=== PATIENT | female | born 1960 | race Caucasian/White ===

== ENCOUNTER 2024-05-04 08:56 | Outpatient (AMB) | payer OTHER, SELFPAY ==
[2024-05-04 09:38] VITALS: BP 106/73; PULSE 73; RESP 19; TEMP 36.1; O2SAT 95; BMI 29.4
--- NOTE | 2024-05-04 09:38 | ORTHONT_ITS ---
Vital signs 05/04/24 09:38 Height 1.73 m Height Method Stated Weight 87.997 kg Weight Measurement Method Standing Scale BMI 29.4 BP 106/73 Blood Pressure Source Automatic Cuff Blood Pressure Location Left Upper Arm Position Sitting Respiration 19 Pulse 73 Pulse Source Monitor Temp 96.9 F Temp Source Temporal Artery Scan Pulse Oximetry (%) 95 Oxygen Delivery Method Room Air Med/Allergies Allergies & Medications Allergies Penicillins Allergy (Severe, Verified 05/04/24 09:39) SWELLING IN THROAT, RASH Medication Reconciliation lorazepam 1 mg tablet 1 mg PO BID PRN Anxiety 09/30/17 [History Confirmed 05/04/24] docusate sodium 250 mg capsule 250 mg PO BID 09/26/23 [History Confirmed 05/04/24] estradiol 1 mg tablet 1 mg PO QDAY 09/26/23 [History Confirmed 05/04/24] gabapentin 600 mg tablet 600 mg PO TID 09/26/23 [History Confirmed 05/04/24] loratadine 10 mg tablet (Allergy Relief (loratadine)) 10 mg PO QDAY 09/26/23 [History Confirmed 05/04/24] meloxicam 15 mg tablet 15 mg PO QDAY 09/26/23 [History Confirmed 05/04/24] methocarbamol 750 mg tablet 750 mg PO BID PRN Pain 09/26/23 [History Confirmed 05/04/24] mirabegron 25 mg tablet,extended release 24 hr (Myrbetriq) 25 mg PO QDAY 09/26/23 [History Confirmed 05/04/24] ondansetron HCl 4 mg tablet 4 mg PO Q8H PRN Nausea 09/26/23 [History Confirmed 05/04/24] oxycodone 5 mg capsule 5 mg PO DAILY PRN Pain 09/26/23 [History Confirmed 05/04/24] levothyroxine 150 mcg tablet 150 mcg PO DAILY 11/24/23 [History Confirmed 05/04/24] omeprazole 40 mg capsule,delayed release 40 mg PO DAILY 11/24/23 [History Confirmed 05/04/24] tirzepatide (weight loss) 2.5 mg/0.5 mL subcutaneous pen injector (Zepbound) 2.5 mg subcut QWEEK 11/24/23 [History Confirmed 05/04/24] tirzepatide (weight loss) 2.5 mg/0.5 mL subcutaneous pen injector (Zepbound) 2.5 mg subcut QWEEK 01/09/24 [History Confirmed 05/04/24] Exam Exam Patient is in no acute distress and is cooperative with the examination today. Breathing is nonlabored. In no respiratory distress. Patient has no paraspinal tenderness. Spinal deformity [cannot] be appreciated. The gait of the patient is [nonantalgic] Bilateral extremities were evaluated and demonstrates sensation intact to light touch. Palpable pedal pulses are present. No significant edema is present. Bilateral knees were examined and the patient has full strength and range of motion.. The left hip was examined. Patient was able to flex to 90 degrees, adduct to 30 degrees, abduct to 40 degrees, internally rotate to 20 degrees, and externally rotate to 20 degrees. Patient has a negative logroll. Stinchfield is negative. The patient is Tender to touch over the greater trochanter The right hip was examined. Patient was able to flex to [90] degrees, adduct to [30] degrees, abduct to [40] degrees, internally rotate to [20] degrees, and externally rotate to [20] degrees. Patient has a [negative] logroll. The stinchfield is [negative]. Tender to touch over the treated trochanteric Bilateral knees demonstrate tenderness to palpation medially. Range of motion 0 to 110 degrees. Knee feels stable to varus stress as well as AP translation X-rays demonstrate minimal joint space narrowing of both hips. Bilateral knee films Demonstrate medial joint space narrowing. Assessment and Plan Problem List (1) Bilateral primary osteoarthritis of knee: Status: Acute Plan: Patient is a 63-year-old female with bilateral knee pain and bilateral knee osteoarthritis. We did Bilateral knee injections previously and the pain relief lasted over 3 months. She would like repeat knee injections today. She would also like a trochanteric bursitis injection on the right side of the next visit Recommend knee cortisone injections as patient would like to proceed with conservative treatment at this time. The risks and benefits of the procedure were reviewed with the patient and patient gave verbal consent to continue with the procedure. Procedure: performed by Dr. Rivero Using sterile technique the Bilateral knees were thoroughly prepped with alcohol, and approximately 1 cc of Kenalog 40 mg/mL and 4 cc of 1% lidocaine was injected into each knee without resistance into the medial tibial femoral joint space. The patient tolerated the procedure. Office Procedures GNS Level of Care Nursing/Assessment Patient Status: Established Patient Nursing Assessment/Reassesment: Medication Reconciliation, Update PMH in EMR and Vital Signs Coordination of Care: Complex Care and Chronic Disease 1-5, Education Complex Pt/Fam, Consent,records obtained, informed consent, 1 Ins Authorization, Results/Orders obtained and Staff clarify orders Established Patient Charge Established Patient Point Assignment: 110 Established Patient Point Charge: EP Level 3 (80-115) Surgical Proc/IM SQ injection Major Surgical Procedure: Yes (BILATERAL KNEE INJECTION) Medication Given Medication Given Medication Given: Yes Documented Dose Given: 8 Route: Infiitration Medication Given Medication Given Medication Given: Yes Documented Dose Given: 2 Route: Infiitration Office Meds Xylocaine 10 mg/mL (1 %) injection solution Performing Provider: Rafat Rivero MD Performing Location: [facility] Administered by: Rafat Rivero MD on 05/04/24 10:06 Dose Route Admin Location Dispensed Lot Number Expiration Date [facility] Trolley Car Operator 40 mL Infiltration 40 mL [id number] 01/01/27 80703-435-78 [facility] triamcinolone acetonide 40 mg/mL suspension for injection Performing Provider: Rafat Rivero MD Performing Location: [facility] Administered by: Rafat Rivero MD on 05/04/24 10:06 Dose Route Admin Location Dispensed Lot Number Expiration Date [facility] Trolley Car Operator 80 mg Infiltration 2 mL [id number] 10/01/25 2885-1047-12 TEVA PARENTERAL [place] Intake Visit Data Collection New Patient or Established: Established Patient (seen at [facility] within 3 years) Reason for Visit:: F/U BL KNEE/RIGHT HIP PAIN Seen by Clinical Staff ONLY (RN/MA): No Supervisor Air Conditioning Installer Required: No PCP or OBGYN visit in last 3 months: Yes Hx Now: No Do You Feel Safe at Home: Yes Authorities Contacted: N/A Questionairres Past Medical History Past Medical History Have you ever been diagnosed with any of the following: Neurological Problems Seizures: No Cardiology Problems Heart Murmur: Yes Congestive Heart Failure: No Hypertension: Yes Respiratory Problems Chronic Obstructive Pulmonary Disease (COPD): No Pneumonia: Yes Sleep Apnea: Yes (WAITING FOR CPAP DELIVERY) Stomache/Intestinal Problems Gall Bladder Disease: Yes Gastroesophageal Reflux Disease: Yes Genital/Urinary Problems Renal Disease: No Musculoskeletal Problems Arthritis: Yes Osteoporosis: Yes Degenerative Disk Disease: Yes Fibromyalgia: Yes Endocrine Problems Diabetes Mellitus Type 1: No Diabetes Mellitus Type 2: No Hypothyroidism: Yes Psychologic Problems Depression: Yes Anxiety: Yes Other Problems Hospitalization: Yes Falls: Yes Blood Transfusions: Yes Blood Transfusion Reaction: No Anesthesia Reactions: No Chicken Pox: Yes Measles: Yes Mumps: Yes Cancer: No Surgical History Hysterectomy: Yes Subjective Visit Visit for: follow up visit, hip (RIGHT) and knee (BILATERAL) Immunization / Flu Flu Vaccine in the Last 12 Months: No Flu Vaccine Exclusion Criteria: No Exclusion Criteria History of Present Illness Chief complaint: Bilateral knee pain Patient is a 63-year-old female with bilateral knee pain and bilateral knee arthritis. She has 3 months of relief with the last injections only given today. She also reports right trochanteric bursitis. We injected her left hip last time with bursitis is wondering completely. She reports the right side is bothering her somewhat. She would like to get this injected at some point Pain Pain level (0-10): 7 Pain duration: CONSTANT Pain location: inside (medial) and other (specify) (HIP) Pain quality: sharp, burning and tingling Pain timing: night, increases with activity and stairs Associated signs & symptoms: weakness and stiffness Ambulatory data Ambulatory device: none Treatments Improvement with previous injections: Yes Improvement with PT: No Improvement with NSAIDS: no Review of Systems Review of Systems: All systems negative unless otherwise noted in HPI.
== END 2024-05-04 10:23 | disposition home or self-care (01) ==
LOC: HODSRG 08:56
PROVIDERS: Supervising Provider Orthopaedic Surgery Adult Reconstructive Orthopaedic Surgery; Visit Provider Orthopaedic Surgery Adult Reconstructive Orthopaedic Surgery
DX: M17.0 Bilateral primary osteoarthritis of knee (principal); M25.562 Pain in left knee; M25.561 Pain in right knee; M70.61 Trochanteric bursitis, right hip; I10 Essential (primary) hypertension; K21.9 Gastro-esophageal reflux disease without esophagitis; E03.9 Hypothyroidism, unspecified
CPT/HCPCS: 20610; 99213; J3301; J3490; G0463

== ENCOUNTER 2024-05-14 09:00 | Outpatient (AMB) | payer OTHER, SELFPAY ==
[2024-05-14 09:04] VITALS: BP 124/62; PULSE 69; RESP 18; TEMP 35.6; O2SAT 94; BMI 29.8
--- NOTE | 2024-05-14 09:04 | PD.ORTHCLVIS ---
Vital signs 05/14/24 09:04 Height 1.73 m Height Method Stated Weight 89.386 kg Weight Measurement Method Standing Scale BMI 29.8 BP 124/62 Blood Pressure Source Automatic Cuff Blood Pressure Location Right Upper Arm Position Sitting Respiration 18 Pulse 69 Pulse Source Monitor Temp 96.1 F L Temp Source Temporal Artery Scan Pulse Oximetry (%) 94 L Oxygen Delivery Method Room Air Med/Allergies Allergies & Medications Allergies Penicillins Allergy (Severe, Verified 05/14/24 09:05) SWELLING IN THROAT, RASH Medication Reconciliation lorazepam 1 mg tablet 1 mg PO BID PRN Anxiety 09/30/17 [History Confirmed 05/14/24] docusate sodium 250 mg capsule 250 mg PO BID 09/26/23 [History Confirmed 05/14/24] estradiol 1 mg tablet 1 mg PO QDAY 09/26/23 [History Confirmed 05/14/24] gabapentin 600 mg tablet 600 mg PO TID 09/26/23 [History Confirmed 05/14/24] loratadine 10 mg tablet (Allergy Relief (loratadine)) 10 mg PO QDAY 09/26/23 [History Confirmed 05/14/24] meloxicam 15 mg tablet 15 mg PO QDAY 09/26/23 [History Confirmed 05/14/24] methocarbamol 750 mg tablet 750 mg PO BID PRN Pain 09/26/23 [History Confirmed 05/14/24] mirabegron 25 mg tablet,extended release 24 hr (Myrbetriq) 25 mg PO QDAY 09/26/23 [History Confirmed 05/14/24] ondansetron HCl 4 mg tablet 4 mg PO Q8H PRN Nausea 09/26/23 [History Confirmed 05/14/24] oxycodone 5 mg capsule 5 mg PO DAILY PRN Pain 09/26/23 [History Confirmed 05/14/24] levothyroxine 150 mcg tablet 150 mcg PO DAILY 11/24/23 [History Confirmed 05/14/24] omeprazole 40 mg capsule,delayed release 40 mg PO DAILY 11/24/23 [History Confirmed 05/14/24] tirzepatide (weight loss) 2.5 mg/0.5 mL subcutaneous pen injector (Zepbound) 2.5 mg subcut QWEEK 11/24/23 [History Confirmed 05/14/24] tirzepatide (weight loss) 2.5 mg/0.5 mL subcutaneous pen injector (Zepbound) 2.5 mg subcut QWEEK 01/09/24 [History Confirmed 05/14/24] Exam Exam Patient is in no acute distress and is cooperative with the examination today. Breathing is nonlabored. In no respiratory distress. Patient has no paraspinal tenderness. Spinal deformity [cannot] be appreciated. The gait of the patient is [nonantalgic] Bilateral extremities were evaluated and demonstrates sensation intact to light touch. Palpable pedal pulses are present. No significant edema is present. Bilateral knees were examined and the patient has full strength and range of motion.. The left hip was examined. Patient was able to flex to 90 degrees, adduct to 30 degrees, abduct to 40 degrees, internally rotate to 20 degrees, and externally rotate to 20 degrees. Patient has a negative logroll. Stinchfield is negative. The patient is Tender to touch over the greater trochanter The right hip was examined. Patient was able to flex to [90] degrees, adduct to [30] degrees, abduct to [40] degrees, internally rotate to [20] degrees, and externally rotate to [20] degrees. Patient has a [negative] logroll. The stinchfield is [negative]. Tender to touch over the treated trochanteric Bilateral knees demonstrate tenderness to palpation medially. Range of motion 0 to 110 degrees. Knee feels stable to varus stress as well as AP translation X-rays demonstrate minimal joint space narrowing of both hips. Bilateral knee films Demonstrate medial joint space narrowing.Right hip demonstrates minimal arthritis Assessment and Plan Problem List (1) Trochanteric bursitis of both hips: Status: Acute Plan: Patient is a pleasant 63-year-old female with trochanteric bursitis of the right hip. She would like an injection today. We also recommend continued anti-inflammatories and weight loss Recommend hip bursa cortisone injection as patient would like to proceed with conservative treatment at this time. The risks and benefits of the procedure were reviewed with the patient and patient gave verbal consent to continue with the procedure. Procedure: performed by Dr. Rivero Using sterile technique the right hip bursa was thoroughly prepped with alcohol prep, and approximately 1 cc of Kenalog 40 mg/mL and 4 cc of 1% Lidocaine was injected without resistance. The patient tolerated the procedure well. Office Procedures GNS Level of Care Nursing/Assessment Patient Status: Established Patient Nursing Assessment/Reassesment: Medication Reconciliation, Update PMH in EMR and Vital Signs Coordination of Care: Complex Care and Chronic Disease 1-5, Education Complex Pt/Fam, Consent,records obtained, informed consent, Results/Orders obtained and Staff clarify orders Established Patient Charge Established Patient Point Assignment: 95 Established Patient Point Charge: EP Level 3 (80-115) Surgical Proc/IM SQ injection Major Surgical Procedure: Yes (HIP INJECTION ) Medication Given Medication Given Medication Given: Yes Documented Dose Given: 4 Route: Infiitration Medication Given Medication Given Medication Given: Yes Documented Dose Given: 1 Route: Infiitration Office Meds Xylocaine 10 mg/mL (1 %) injection solution Performing Provider: Rafat Rivero MD Performing Location: [facility] Administered by: Rafat Rivero MD on 05/14/24 11:49 Dose Route Admin Location Dispensed Lot Number Expiration Date [facility] Food Safety Field Specialist 20 mL Infiltration 20 mL [id number] 12/09/26 65265-699-46 [facility] triamcinolone acetonide 40 mg/mL suspension for injection Performing Provider: Rafat Rivero MD Performing Location: [facility] Administered by: Rafat Rivero MD on 05/14/24 11:49 Dose Route Admin Location Dispensed Lot Number Expiration Date [facility] Food Safety Field Specialist 40 mg intra-articular KNEE 1 mL [id number] 09/02/25 8717-2134-55 TEVA PARENTERAL [place] Intake Visit Data Collection New Patient or Established: Established Patient ([place] [facility] [place] Reason for Visit:: REQ HIP INJECTION Seen by Clinical Staff ONLY (RN/MA): No Verbal consent obtained for Telemed visit?: No Co Chairman Required: No PCP or OBGYN visit in last 3 months: Yes Hx Now: No Do You Feel Safe at Home: Yes Authorities Contacted: N/A Questionairres Past Medical History Past Medical History Have you ever been diagnosed with any of the following: Neurological Problems Seizures: No Cardiology Problems Heart Murmur: Yes Congestive Heart Failure: No Hypertension: Yes Respiratory Problems Chronic Obstructive Pulmonary Disease (COPD): No Pneumonia: Yes Sleep Apnea: Yes (WAITING FOR CPAP DELIVERY) Stomache/Intestinal Problems Gall Bladder Disease: Yes Gastroesophageal Reflux Disease: Yes Genital/Urinary Problems Renal Disease: No Musculoskeletal Problems Arthritis: Yes Osteoporosis: Yes Degenerative Disk Disease: Yes Fibromyalgia: Yes Endocrine Problems Diabetes Mellitus Type 1: No Diabetes Mellitus Type 2: No Hypothyroidism: Yes Psychologic Problems Depression: Yes Anxiety: Yes Other Problems Hospitalization: Yes Falls: Yes Blood Transfusions: Yes Blood Transfusion Reaction: No Anesthesia Reactions: No Chicken Pox: Yes Measles: Yes Mumps: Yes Cancer: No Surgical History Hysterectomy: Yes Subjective Visit Visit for: follow up visit, hip and injections Immunization / Flu Flu Vaccine in the Last 12 Months: No Flu Vaccine Exclusion Criteria: No Exclusion Criteria History of Present Illness Chief complaint: REQ HIP INJECTIONS Patient is a 63-year-old female with bilateral knee pain and bilateral knee arthritis. She has 3 months of relief with the last injections only given today. She also reports right trochanteric bursitis. We injected her left hip last time with bursitis is gone completely. She reports the right side is bothering her somewhat. She would like the right trochanteric bursa injected Pain Pain level (0-10): 6 Pain duration: CONSTANT Pain location: groin Pain quality: sharp, dull and aching Pain timing: night, increases with activity and stairs Associated signs & symptoms: weakness and stiffness Ambulatory data Ambulatory device: none Treatments Improvement with previous injections: No Improvement with PT: No Improvement with NSAIDS: n/a Review of Systems Review of Systems: All systems negative unless otherwise noted in HPI.
== END 2024-05-14 09:49 | disposition home or self-care (01) ==
PROVIDERS: Supervising Provider Orthopaedic Surgery Adult Reconstructive Orthopaedic Surgery; Visit Provider Orthopaedic Surgery Adult Reconstructive Orthopaedic Surgery
DX: M70.61 Trochanteric bursitis, right hip (principal); M70.62 Trochanteric bursitis, left hip
CPT/HCPCS: 20610; 99213; J3301; J3490; G0463

== ENCOUNTER 2024-07-29 14:10 | Outpatient (AMB) | payer OTHER, SELFPAY ==
--- NOTE | 2024-07-29 14:43 | PD.ORTHCLVIS ---
Med/Allergies Allergies & Medications Allergies Penicillins Allergy (Severe, Verified 05/14/24 09:05) SWELLING IN THROAT, RASH Exam Exam Patient is a 63-year-old female with bilateral knee arthritis right hip bursitis. We discussed nonoperative and operative options. She would like bilateral knee injections today as well as a right hip cortisone injection Recommend knee cortisone injections as patient would like to proceed with conservative treatment at this time. The risks and benefits of the procedure were reviewed with the patient and patient gave verbal consent to continue with the procedure. Procedure: performed by Dr. Rivero Using sterile technique the Bilateral knees were thoroughly prepped with alcohol, and approximately 1 cc of Kenalog 40 mg/mL and 4 cc of 1% lidocaine was injected into each knee without resistance into the medial tibial femoral joint space. The patient tolerated the procedure. Recommend hip bursa cortisone injection as patient would like to proceed with conservative treatment at this time. The risks and benefits of the procedure were reviewed with the patient and patient gave verbal consent to continue with the procedure. Procedure: performed by Dr. Rivero Using sterile technique the right hip bursa was thoroughly prepped with alcohol prep, and approximately 1 cc of Kenalog 40 mg/mL and 4 cc of 1% Lidocaine was injected without resistance. The patient tolerated the procedure well. Assessment and Plan Problem List (1) Trochanteric bursitis of both hips: Status: Acute (2) Bilateral primary osteoarthritis of knee: Status: Acute Questionairres Past Medical History Past Medical History Have you ever been diagnosed with any of the following: Neurological Problems Seizures: No Cardiology Problems Heart Murmur: Yes Congestive Heart Failure: No Hypertension: Yes Respiratory Problems Chronic Obstructive Pulmonary Disease (COPD): No Pneumonia: Yes Sleep Apnea: Yes (WAITING FOR CPAP DELIVERY) Stomache/Intestinal Problems Gall Bladder Disease: Yes Gastroesophageal Reflux Disease: Yes Genital/Urinary Problems Renal Disease: No Musculoskeletal Problems Arthritis: Yes Osteoporosis: Yes Degenerative Disk Disease: Yes Fibromyalgia: Yes Endocrine Problems Diabetes Mellitus Type 1: No Diabetes Mellitus Type 2: No Hypothyroidism: Yes Psychologic Problems Depression: Yes Anxiety: Yes Other Problems Hospitalization: Yes Falls: Yes Blood Transfusions: Yes Blood Transfusion Reaction: No Anesthesia Reactions: No Chicken Pox: Yes Measles: Yes Mumps: Yes Cancer: No Surgical History Hysterectomy: Yes Subjective Visit Visit for: follow up visit, hip and injections Immunization / Flu Flu Vaccine in the Last 12 Months: No Flu Vaccine Exclusion Criteria: No Exclusion Criteria History of Present Illness Chief complaint: REQ HIP INJECTIONS Patient is a 63-year-old female with bilateral knee pain and bilateral knee arthritis. She has 3 months of relief with the last injections. The knee injections continue to work for 3 months or longer. She would like bilateral knee injections today. She also reports that the right hip trochanteric bursitis tried to cut back. She would like an injection today. Pain Pain level (0-10): 6 Pain duration: CONSTANT Pain location: groin Pain quality: sharp, dull and aching Pain timing: night, increases with activity and stairs Associated signs & symptoms: weakness and stiffness Ambulatory data Ambulatory device: none Treatments Improvement with previous injections: No Improvement with PT: No Improvement with NSAIDS: n/a Review of Systems Review of Systems: All systems negative unless otherwise noted in HPI.
[2024-07-29 14:50] VITALS: BP 117/22; PULSE 77; RESP 19; TEMP 35.8; O2SAT 92; BMI 29.0
== END 2024-07-29 15:02 | disposition home or self-care (01) ==
PROVIDERS: Supervising Provider Orthopaedic Surgery Adult Reconstructive Orthopaedic Surgery; Visit Provider Orthopaedic Surgery Adult Reconstructive Orthopaedic Surgery
DX: M70.61 Trochanteric bursitis, right hip (principal); M70.62 Trochanteric bursitis, left hip; M17.0 Bilateral primary osteoarthritis of knee; M25.562 Pain in left knee; M25.561 Pain in right knee; I10 Essential (primary) hypertension; E03.9 Hypothyroidism, unspecified; M79.7 Fibromyalgia; G47.30 Sleep apnea, unspecified
CPT/HCPCS: 20610; 99213; J3301; J3490; G0463

== ENCOUNTER 2024-10-28 10:23 | Outpatient (AMB) | payer MEDICARE, OTHER, SELFPAY ==
[2024-10-28 10:42] VITALS: BP 123/81; PULSE 70; RESP 17; TEMP 36.9; O2SAT 93; BMI 29.0
--- NOTE | 2024-10-28 10:42 | PD.ORTHCLVIS ---
Vital signs 10/28/24 10:42 Height 1.74 m Height Method Stated Weight 87.742 kg Weight Measurement Method Standing Scale BMI 29.0 BP 123/81 Blood Pressure Source Automatic Cuff Blood Pressure Location Right Upper Arm Position Sitting Respiration 17 Pulse 70 Pulse Source Monitor Temp 98.4 F Temp Source Temporal Artery Scan Pulse Oximetry (%) 93 L Oxygen Delivery Method Room Air Med/Allergies Allergies & Medications Allergies Penicillins Allergy (Severe, Verified 10/28/24 10:44) SWELLING IN THROAT, RASH alendronate sodium Allergy (Verified 10/28/24 10:44) Medication Reconciliation lorazepam 1 mg tablet 1 mg PO BID PRN Anxiety 09/30/17 [History Confirmed 10/28/24] Held on 11/24/23. Instructions: Resume on 11/25/23. docusate sodium 250 mg capsule 250 mg PO BID 09/26/23 [History Confirmed 10/28/24] estradiol 1 mg tablet 1 mg PO QDAY 09/26/23 [History Confirmed 10/28/24] gabapentin 600 mg tablet 600 mg PO TID 09/26/23 [History Confirmed 10/28/24] loratadine 10 mg tablet (Allergy Relief (loratadine)) 10 mg PO QDAY 09/26/23 [History Confirmed 10/28/24] meloxicam 15 mg tablet 15 mg PO QDAY 09/26/23 [History Confirmed 10/28/24] methocarbamol 750 mg tablet 750 mg PO BID PRN Pain 09/26/23 [History Confirmed 10/28/24] Held on 11/24/23. Instructions: Resume on 11/25/23. mirabegron 25 mg tablet,extended release 24 hr (Myrbetriq) 25 mg PO QDAY 09/26/23 [History Confirmed 10/28/24] ondansetron HCl 4 mg tablet 4 mg PO Q8H PRN Nausea 09/26/23 [History Confirmed 10/28/24] oxycodone 5 mg capsule 5 mg PO DAILY PRN Pain 09/26/23 [History Confirmed 10/28/24] Held on 11/24/23. Instructions: Resume on 11/25/23. levothyroxine 150 mcg tablet 150 mcg PO DAILY 11/24/23 [History Confirmed 10/28/24] omeprazole 40 mg capsule,delayed release 40 mg PO DAILY 11/24/23 [History Confirmed 10/28/24] tirzepatide (weight loss) 2.5 mg/0.5 mL subcutaneous pen injector (Zepbound) 2.5 mg subcut QWEEK 11/24/23 [History Confirmed 10/28/24] tirzepatide (weight loss) 2.5 mg/0.5 mL subcutaneous pen injector (Zepbound) 2.5 mg subcut QWEEK 01/09/24 [History Confirmed 10/28/24] Exam Exam Patient is in no acute distress and is cooperative with the examination today. Breathing is nonlabored. In no respiratory distress. Patient has no paraspinal tenderness. Spinal deformity [cannot] be appreciated. The gait of the patient is [nonantalgic] Bilateral extremities were evaluated and demonstrates sensation intact to light touch. Palpable pedal pulses are present. No significant edema is present. Bilateral knees were examined and the patient has full strength and range of motion.. The left hip was examined. Patient was able to flex to 90 degrees, adduct to 30 degrees, abduct to 40 degrees, internally rotate to 20 degrees, and externally rotate to 20 degrees. Patient has a negative logroll. Stinchfield is negative. The patient is Tender to touch over the greater trochanter The right hip was examined. Patient was able to flex to [90] degrees, adduct to [30] degrees, abduct to [40] degrees, internally rotate to [20] degrees, and externally rotate to [20] degrees. Patient has a [negative] logroll. The stinchfield is [negative]. Tender to touch over the treated trochanteric Bilateral knees demonstrate tenderness to palpation medially. Range of motion 0 to 110 degrees. Knee feels stable to varus stress as well as AP translation X-rays demonstrate minimal joint space narrowing of both hips. Bilateral knee films Demonstrate medial joint space narrowing.Right hip demonstrates minimal arthritis Assessment and Plan Problem List (1) Trochanteric bursitis of both hips: Status: Acute Plan: Patient is a 63-year-old female with bilateral knee arthritis right hip bursitis. We discussed nonoperative and operative options. She would like bilateral knee injections today as well as a right hip cortisone injection Recommend knee cortisone injections as patient would like to proceed with conservative treatment at this time. The risks and benefits of the procedure were reviewed with the patient and patient gave verbal consent to continue with the procedure. Procedure: performed by Dr. Rivero Using sterile technique the Bilateral knees were thoroughly prepped with alcohol, and approximately 1 cc of Kenalog 40 mg/mL and 4 cc of 1% lidocaine was injected into each knee without resistance into the medial tibial femoral joint space. The patient tolerated the procedure. Recommend hip bursa cortisone injection as patient would like to proceed with conservative treatment at this time. The risks and benefits of the procedure were reviewed with the patient and patient gave verbal consent to continue with the procedure. Procedure: performed by Dr. Rivero Using sterile technique the right hip bursa was thoroughly prepped with alcohol prep, and approximately 1 cc of Kenalog 40 mg/mL and 4 cc of 1% Lidocaine was injected without resistance. The patient tolerated the procedure well. (2) Bilateral primary osteoarthritis of knee: Status: Acute Advanced Care Planning Discussion Advance care planning discussed with:: patient Office Procedures GNS Level of Care Nursing/Assessment Patient Status: Established Patient Nursing Assessment/Reassesment: Medication Reconciliation, Update PMH in EMR and Vital Signs Coordination of Care: Complex Care and Chronic Disease 1-5, Education Complex Pt/Fam, Consent,records obtained, informed consent, Results/Orders obtained and Staff clarify orders Established Patient Charge Established Patient Point Assignment: 95 Established Patient Point Charge: EP Level 3 (80-115) Surgical Proc/IM SQ injection Major Surgical Procedure: Yes (HIP/KNEE INJECTION) Medication Given Medication Given Medication Given: Yes Documented Dose Given: 12 Route: Infiitration Medication Given Medication Given Medication Given: Yes Documented Dose Given: 4 Route: Infiitration Medication Given Medication Given Medication Given: Yes Documented Dose Given: 2 Route: Infiitration Medication Given Medication Given Medication Given: Yes Documented Dose Given: 1 Route: Infiitration Office Meds Xylocaine 10 mg/mL (1 %) injection solution Performing Provider: Rafat Rivero MD Performing Location: [facility] Administered by: Mariah Licea on 10/28/24 11:01 Dose Route Admin Location Dispensed Lot Number Expiration Date NDC Warping Machine Operator 40 mL Infiltration 40 mL [id number] 09/02/27 65555-216-73 [employer] Xylocaine 10 mg/mL (1 %) injection solution Performing Provider: Rafat Rivero MD Performing Location: [facility] Administered by: Mariah Licea on 10/28/24 11:01 Dose Route Admin Location Dispensed Lot Number Expiration Date ND Warping Machine Operator 20 mL Infiltration 20 mL [id number] 09/02/27 00677-889-99 [employer] triamcinolone acetonide 40 mg/mL suspension for injection Performing Provider: Rafat Rivero MD Performing Location: [facility] Administered by: Mariah Licea on 10/28/24 11:01 Dose Route Admin Location Dispensed Lot Number Expiration Date ND Warping Machine Operator 40 mg intra-articular KNEE 1 mL [id number] 06/03/26 48226-242-87 [employer] triamcinolone acetonide 40 mg/mL suspension for injection Performing Provider: Rafat Rivero MD Performing Location: [facility] Administered by: Rafat Rivero MD on 10/28/24 11:01 Dose Route Admin Location Dispensed Lot Number Expiration Date [facility] Warping Machine Operator 80 mg intra-articular 2 mL [id number] 06/03/26 16808-483-09 [employer] MA Intake Visit Data Collection New Patient or Established: Established Patient (seen at [facility] within 3 years) Reason for Visit:: FOLLWO UP BILATERAL KNEE/ RIGHT HIP INJECTION Seen by Clinical Staff ONLY (RN/MA): No Die Developer Required: No PCP or OBGYN visit in last 3 months: Yes Hx Now: No Do You Feel Safe at Home: Yes Authorities Contacted: N/A Questionairres Past Medical History Past Medical History Have you ever been diagnosed with any of the following: Neurological Problems Seizures: No Cardiology Problems Heart Murmur: Yes Congestive Heart Failure: No Hypertension: Yes Respiratory Problems Chronic Obstructive Pulmonary Disease (COPD): No Pneumonia: Yes Sleep Apnea: Yes (WAITING FOR CPAP DELIVERY) Stomache/Intestinal Problems Gall Bladder Disease: Yes Gastroesophageal Reflux Disease: Yes Genital/Urinary Problems Renal Disease: No Musculoskeletal Problems Arthritis: Yes Osteoporosis: Yes Degenerative Disk Disease: Yes Fibromyalgia: Yes Endocrine Problems Diabetes Mellitus Type 1: No Diabetes Mellitus Type 2: No Hypothyroidism: Yes Psychologic Problems Depression: Yes Anxiety: Yes Other Problems Hospitalization: Yes Falls: Yes Blood Transfusions: Yes Blood Transfusion Reaction: No Anesthesia Reactions: No Chicken Pox: Yes Measles: Yes Mumps: Yes Cancer: No Surgical History Hysterectomy: Yes Subjective Visit Visit for: follow up visit, hip (RIGHT HIP) and knee (BILATERAL KNEE ) Immunization / Flu Flu Vaccine in the Last 12 Months: Yes Flu Vaccine Exclusion Criteria: Already Received History of Present Illness Chief complaint: REQ HIP INJECTIONS Patient is a 63-year-old female with bilateral knee pain and bilateral knee arthritis. She has 3 months of relief with the last injections. The knee injections continue to work for 3 months or longer. She would like bilateral knee injections today as Well as a right hip injection. The injections are working for 3 months. Personal History Red flag PMH: none Pain Pain level (0-10): 6 Pain duration: 1 MONTH Pain location: groin and anterior Pain quality: sharp, dull, burning and other (specify) (SWELLING) Pain timing: night and increases with activity Associated signs & symptoms: weakness and stiffness Ambulatory data Ambulatory device: none Walking distance (minutes): 5 Treatments Number of previous injections: 3 Improvement with previous injections: Yes Number of Physical Therapy sessions: 0 Improvement with PT: No Improvement with NSAIDS: n/a Review of Systems Review of Systems: All systems negative unless otherwise noted in HPI.
== END 2024-10-28 11:07 | disposition home or self-care (01) ==
PROVIDERS: Supervising Provider Orthopaedic Surgery Adult Reconstructive Orthopaedic Surgery; Visit Provider Orthopaedic Surgery Adult Reconstructive Orthopaedic Surgery
DX: M70.61 Trochanteric bursitis, right hip (principal); M70.62 Trochanteric bursitis, left hip; M17.0 Bilateral primary osteoarthritis of knee; I10 Essential (primary) hypertension; K21.9 Gastro-esophageal reflux disease without esophagitis
CPT/HCPCS: 20610; 99213; J3301; J3490; G0463

== ENCOUNTER → 2024-12-22 | Outpatient (CLI) | payer MEDICARE, OTHER, SELFPAY ==
--- NOTE | 2024-12-22 | XR_ITS ---
Examination: Knee bilateral, 7 views Technique: Knee AP, lateral, oblique each knee total 6 views, bilateral axial knees single view total 7 views Date and time of exam: December 22, 2024 1105 hours INDICATIONS: Patient fell 10 days ago with injury to both knees, bilateral knee pain. FINDINGS: Significant osteopenia Mild to moderate tricompartment joint narrowing No fracture or patellar dislocation involving either knee IMPRESSION: No fracture or dislocation involving either knee
--- NOTE | 2024-12-22 | XR_ITS ---
Examination: Lumbar spine 3 views Technique one AP lateral coned lateral lower lumbar spine 3 views Date and time: December 22, 2024 1114 hours, comparison August 27, 2018 INDICATIONS: Low back pain years, history lumbar spine surgery, patient fell 10 days ago with injury to the back, back pain. FINDINGS: Transpedicular lumbar stabilization L4-L5 with anatomic alignment No acute lumbar fracture Mild disc narrowing L5-S1 IMPRESSION: No lumbar fracture
--- NOTE | 2024-12-22 | XR_ITS ---
Examination:Right hip AP, lateral, AP pelvis 3 views Technique: Hip AP lateral, AP pelvis, 3 views Exam date and time:February 21, 2025 1105 hours INDICATIONS: Patient fell 10 days ago with injury to the right hip, right hip pain. FINDINGS: No acute right hip fracture No hip dislocation Left hip bones of the pelvis intact Moderate narrowing hip joints IMPRESSION: No acute hip or pelvic fracture.
== END | disposition home or self-care (01) ==
LOC: CDIM 10:43
PROVIDERS: PCP Internal Medicine; Referring Provider Nurse Practitioner Family; Visit Provider Nurse Practitioner Family
DX: S79.911A Unspecified injury of right hip, initial encounter (principal); S89.91XA Unspecified injury of right lower leg, initial encounter; S89.92XA Unspecified injury of left lower leg, initial encounter; S39.92XA Unspecified injury of lower back, initial encounter; W19.XXXA Unspecified fall, initial encounter
CPT/HCPCS: 72100; 73502; 73564

== ENCOUNTER 2025-01-06 11:25 | Outpatient (AMB) | payer MEDICARE, OTHER, SELFPAY ==
--- NOTE | 2025-01-06 11:38 | ORTHONT_ITS ---
Vital signs 01/06/25 11:45 Height 1.74 m Height Method Stated Weight 87.742 kg Weight Measurement Method Standing Scale BMI 29.0 BP 136/82 H Blood Pressure Source Automatic Cuff Blood Pressure Location Left Upper Arm Position Sitting Respiration 18 Pulse 81 Pulse Source Monitor Temp 97.6 F Temp Source Temporal Artery Scan Pulse Oximetry (%) 93 L Oxygen Delivery Method Room Air Med/Allergies Allergies & Medications Allergies Penicillins Allergy (Severe, Verified 10/28/24 10:44) SWELLING IN THROAT, RASH alendronate sodium Allergy (Verified 10/28/24 10:44) Exam Exam Patient is in no acute distress and is cooperative with the examination today. Breathing is nonlabored. In no respiratory distress. Patient has no paraspinal tenderness. Spinal deformity [cannot] be appreciated. The gait of the patient is [nonantalgic] Bilateral extremities were evaluated and demonstrates sensation intact to light touch. Palpable pedal pulses are present. No significant edema is present. Bilateral knees were examined and the patient has full strength and range of motion.. The left hip was examined. Patient was able to flex to 90 degrees, adduct to 30 degrees, abduct to 40 degrees, internally rotate to 20 degrees, and externally rotate to 20 degrees. Patient has a negative logroll. Stinchfield is negative. The patient is Tender to touch over the greater trochanter The right hip was examined. Patient was able to flex to [90] degrees, adduct to [30] degrees, abduct to [40] degrees, internally rotate to [20] degrees, and externally rotate to [20] degrees. Patient has a [negative] logroll. The stinchfield is [negative]. Tender to touch over the treated trochanteric Bilateral knees demonstrate tenderness to palpation medially. Range of motion 0 to 110 degrees. Knee feels stable to varus stress as well as AP translation X-rays demonstrate minimal joint space narrowing of both hips. Bilateral knee films Demonstrate medial joint space narrowing.Right hip demonstrates minimal arthritis Assessment and Plan Problem List (1) Trochanteric bursitis of both hips: Status: Acute Plan: Patient is a 63-year-old female with bilateral knee arthritis right hip bursitis. We discussed nonoperative and operative options. She would like bilateral knee injections today as well as a right hip cortisone injection Recommend knee cortisone injection as patient would like to proceed with conservative treatment at this time. The risks and benefits of the procedure were reviewed with the patient and patient gave verbal consent to continue with the procedure. Procedure: performed by Dr. Rivero Using sterile technique the left knee was thoroughly prepped with alcohol, and approximately 1 cc of Depo-Medrol 80mg/mL and 4 cc of 0.2% ropivacaine was injected without resistance into the medial tibial femoral joint space. The patient tolerated the procedure. Recommend knee cortisone injection as patient would like to proceed with conservative treatment at this time. The risks and benefits of the procedure were reviewed with the patient and patient gave verbal consent to continue with the procedure. Procedure: performed by Dr. Rivero Using sterile technique the Right knee was thoroughly prepped with alcohol, and approximately 1 cc of Depo-Medrol 80mg/mL and 4 cc of 0.2% ropivacaine was injected without resistance into the medial tibial femoral joint space. The patient tolerated the procedure. Recommend hip bursa cortisone injection as patient would like to proceed with conservative treatment at this time. The risks and benefits of the procedure were reviewed with the patient and patient gave verbal consent to continue with the procedure. Procedure: performed by Dr. Rivero Using sterile technique the right hip bursa was thoroughly prepped with alcohol prep, and approximately 1 cc of Kenalog 40 mg/mL and 4 cc of 1% Lidocaine was injected without resistance. The patient tolerated the procedure well. (2) Bilateral primary osteoarthritis of knee: Status: Acute Advanced Care Planning Discussion Advance care planning discussed with:: patient Office Procedures GNS Level of Care Nursing/Assessment Patient Status: Established Patient Nursing Assessment/Reassesment: Medication Reconciliation, Update PMH in EMR and Vital Signs Coordination of Care: Complex Care and Chronic Disease 1-5, Education Complex Pt/Fam, Consent,records obtained, informed consent, Results/Orders obtained and Staff clarify orders Established Patient Charge Established Patient Point Assignment: 95 Established Patient Point Charge: EP Level 3 (80-115) Surgical Proc/IM SQ injection Major Surgical Procedure: Yes Medication Given Medication Given Medication Given: Yes Documented Dose Given: 1 Route: Infiitration Medication Given Medication Given Medication Given: Yes Documented Dose Given: 1 Route: Infiitration Medication Given Medication Given Medication Given: Yes Documented Dose Given: 1 Route: Infiitration Medication Given Medication Given Medication Given: Yes Documented Dose Given: 4 Route: Infiitration Medication Given Medication Given Medication Given: Yes Documented Dose Given: 4 Route: Infiitration Medication Given Medication Given Medication Given: Yes Documented Dose Given: 4 Route: Infiitration Office Meds methylprednisolone acetate 80 mg/mL suspension for injection Performing Provider: Rafat Rivero MD Performing Location: [facility] Administered by: Rafat Rivero MD on 01/06/25 12:13 Dose Route Admin Location Dispensed Lot Number Expiration Date Pack age ND NDC Edge Bander Operator 80 mg intra-articular 1 mL [id number] 10/01/26 [address]-4 7 [id number] [employer] methylprednisolone acetate 80 mg/mL suspension for injection Performing Provider: Rafat Rivero MD Performing Location: [facility] Administered by: Rafat Rivero MD on 01/06/25 12:13 Dose Route Admin Location Dispensed Lot Number Expiration Date Pack age ND ND Edge Bander Operator 80 mg intra-articular 1 mL [id number] 10/01/26 [address]-5 7 [id number] [employer] methylprednisolone acetate 80 mg/mL suspension for injection Performing Provider: Rafat Rivero MD Performing Location: [facility] Administered by: Rafat Rivero MD on 01/06/25 12:13 Dose Route Admin Location Dispensed Lot Number Expiration Date Pack age ND ND Edge Bander Operator 80 mg intra-articular 1 mL [id number] 10/01/26 [address]-7 7 [id number] [employer] ropivacaine (PF) 2 mg/mL (0.2 %) injection solution Performing Provider: Rafat Rivero MD Performing Location: [facility] Administered by: Rafat Rivero MD on 01/06/25 12:13 Dose Route Admin Location Dispensed Lot Number Expiration Date Pack age NDC NDC Edge Bander Operator 20 mL Infiltration 20 mL [id number] 10/01/26 55944-777-20 [id number] [facility] ropivacaine (PF) 2 mg/mL (0.2 %) injection solution Performing Provider: Rafat Rivero MD Performing Location: [facility] Administered by: Rafat Rivero MD on 01/06/25 12:13 Dose Route Admin Location Dispensed Lot Number Expiration Date Pack age NDC NDC Edge Bander Operator 20 mL Infiltration 20 mL [id number] 06/03/27 08661-305-18 [id number] [facility] ropivacaine (PF) 2 mg/mL (0.2 %) injection solution Performing Provider: Rafat Rivero MD Performing Location: [facility] Administered by: Rafat Rivero MD on 01/06/25 12:13 Dose Route Admin Location Dispensed Lot Number Expiration Date Pack age [facility] Edge Bander Operator 20 mL Infiltration 100 mL [id number] 10/01/26 77514-237-57 [id number] [facility] Intake Visit Data Collection New Patient or Established: Established Patient (seen at [facility] within 3 years) Reason for Visit:: FOLLOW UP BILATERAL KNEE/ RIGHT HIP INJECTION Seen by Clinical Staff ONLY (RN/MA): No Astro Technician Required: No PCP or OBGYN visit in last 3 months: Yes Hx Now: No Do You Feel Safe at Home: Yes Authorities Contacted: N/A Questionairres Past Medical History Past Medical History Have you ever been diagnosed with any of the following: Neurological Problems Seizures: No Cardiology Problems Heart Murmur: Yes Congestive Heart Failure: No Hypertension: Yes Respiratory Problems Chronic Obstructive Pulmonary Disease (COPD): No Pneumonia: Yes Sleep Apnea: Yes (WAITING FOR CPAP DELIVERY) Stomache/Intestinal Problems Gall Bladder Disease: Yes Gastroesophageal Reflux Disease: Yes Genital/Urinary Problems Renal Disease: No Musculoskeletal Problems Arthritis: Yes Osteoporosis: Yes Degenerative Disk Disease: Yes Fibromyalgia: Yes Endocrine Problems Diabetes Mellitus Type 1: No Diabetes Mellitus Type 2: No Hypothyroidism: Yes Psychologic Problems Depression: Yes Anxiety: Yes Other Problems Hospitalization: Yes Falls: Yes Blood Transfusions: Yes Blood Transfusion Reaction: No Anesthesia Reactions: No Chicken Pox: Yes Measles: Yes Mumps: Yes Cancer: No Surgical History Hysterectomy: Yes Subjective Visit Visit for: follow up visit, hip (RIGHT HIP) and knee (BILATERAL KNEE ) Immunization / Flu Flu Vaccine in the Last 12 Months: Yes Flu Vaccine Exclusion Criteria: Already Received History of Present Illness Chief complaint: REQ HIP INJECTIONS Patient is a 63-year-old female with bilateral knee pain and bilateral knee arthritis. She has 3 months of relief with the last injections. The knee injections continue to work for 3 months or longer. She would like bilateral knee injections today as Well as a right hip injection. The injections are working for 3 months. Personal History Red flag PMH: none Pain Pain level (0-10): 6 Pain duration: 1 MONTH Pain location: groin and anterior Pain quality: sharp, dull, burning and other (specify) (SWELLING) Pain timing: night and increases with activity Associated signs & symptoms: weakness and stiffness Ambulatory data Ambulatory device: none Walking distance (minutes): 5 Treatments Number of previous injections: 3 Improvement with previous injections: Yes Number of Physical Therapy sessions: 0 Improvement with PT: No Improvement with NSAIDS: n/a Review of Systems Review of Systems: All systems negative unless otherwise noted in HPI.
[2025-01-06 11:45] VITALS: BP 136/82; PULSE 81; RESP 18; TEMP 36.4; O2SAT 93; BMI 29.0
== END 2025-01-06 12:02 | disposition home or self-care (01) ==
LOC: HODSRG 11:25
PROVIDERS: PCP Internal Medicine; Referring Provider Internal Medicine; Supervising Provider Orthopaedic Surgery Adult Reconstructive Orthopaedic Surgery; Visit Provider Orthopaedic Surgery Adult Reconstructive Orthopaedic Surgery
DX: M70.62 Trochanteric bursitis, left hip (principal); M70.61 Trochanteric bursitis, right hip; M17.0 Bilateral primary osteoarthritis of knee; I10 Essential (primary) hypertension; K21.9 Gastro-esophageal reflux disease without esophagitis; E03.9 Hypothyroidism, unspecified; M25.562 Pain in left knee; M25.561 Pain in right knee
CPT/HCPCS: 20610; 99213; J1010; J2795; G0463

== ENCOUNTER 2025-04-07 09:46 | Outpatient (AMB) | payer MEDICARE, OTHER, SELFPAY ==
--- NOTE | 2025-04-07 10:08 | ORTHONT_ITS ---
Vital signs 04/07/25 10:12 Height 1.74 m Height Method Stated Weight 86.183 kg Weight Measurement Method Standing Scale BMI 28.4 BP 130/70 Blood Pressure Source Automatic Cuff Blood Pressure Location Right Upper Arm Position Sitting Respiration 18 Pulse 76 Pulse Source Monitor Temp 96.6 F L Temp Source Temporal Artery Scan Pulse Oximetry (%) 95 Oxygen Delivery Method Room Air Med/Allergies Allergies & Medications Allergies Penicillins Allergy (Severe, Verified 04/07/25 10:13) SWELLING IN THROAT, RASH alendronate sodium Allergy (Verified 04/07/25 10:13) Medication Reconciliation lorazepam 1 mg tablet 1 mg PO BID PRN Anxiety 09/30/17 [History Confirmed 04/07/25] Held on 11/24/23. Instructions: Resume on 11/25/23. docusate sodium 250 mg capsule 250 mg PO BID 09/26/23 [History Confirmed 04/07/25] estradiol 1 mg tablet 1 mg PO QDAY 09/26/23 [History Confirmed 04/07/25] gabapentin 600 mg tablet 600 mg PO TID 09/26/23 [History Confirmed 04/07/25] loratadine 10 mg tablet (Allergy Relief (loratadine)) 10 mg PO QDAY 09/26/23 [History Confirmed 04/07/25] meloxicam 15 mg tablet 15 mg PO QDAY 09/26/23 [History Confirmed 04/07/25] methocarbamol 750 mg tablet 750 mg PO BID PRN Pain 09/26/23 [History Confirmed 04/07/25] Held on 11/24/23. Instructions: Resume on 11/25/23. mirabegron 25 mg tablet,extended release 24 hr (Myrbetriq) 25 mg PO QDAY 09/26/23 [History Confirmed 04/07/25] ondansetron HCl 4 mg tablet 4 mg PO Q8H PRN Nausea 09/26/23 [History Confirmed 04/07/25] oxycodone 5 mg capsule 5 mg PO DAILY PRN Pain 09/26/23 [History Confirmed 04/07/25] Held on 11/24/23. Instructions: Resume on 11/25/23. levothyroxine 150 mcg tablet 150 mcg PO DAILY 11/24/23 [History Confirmed 04/07/25] omeprazole 40 mg capsule,delayed release 40 mg PO DAILY 11/24/23 [History Confirmed 04/07/25] tirzepatide (weight loss) 2.5 mg/0.5 mL subcutaneous pen injector (Zepbound) 2.5 mg subcut QWEEK 11/24/23 [History Confirmed 04/07/25] tirzepatide (weight loss) 2.5 mg/0.5 mL subcutaneous pen injector (Zepbound) 2.5 mg subcut QWEEK 01/09/24 [History Confirmed 04/07/25] Exam Exam Patient is in no acute distress and is cooperative with the examination today. Breathing is nonlabored. In no respiratory distress. Patient has no paraspinal tenderness. Spinal deformity [cannot] be appreciated. The gait of the patient is [nonantalgic] Bilateral extremities were evaluated and demonstrates sensation intact to light touch. Palpable pedal pulses are present. No significant edema is present. Bilateral knees were examined and the patient has full strength and range of motion.. The left hip was examined. Patient was able to flex to 90 degrees, adduct to 30 degrees, abduct to 40 degrees, internally rotate to 20 degrees, and externally rotate to 20 degrees. Patient has a negative logroll. Stinchfield is negative. The patient is Tender to touch over the greater trochanter The right hip was examined. Patient was able to flex to [90] degrees, adduct to [30] degrees, abduct to [40] degrees, internally rotate to [20] degrees, and externally rotate to [20] degrees. Patient has a [negative] logroll. The stinchfield is [negative]. Tender to touch over the treated trochanteric Bilateral knees demonstrate tenderness to palpation medially. Range of motion 0 to 110 degrees. Knee feels stable to varus stress as well as AP translation X-rays demonstrate minimal joint space narrowing of both hips. Bilateral knee films Demonstrate medial joint space narrowing.Right hip demonstrates minimal arthritis Assessment and Plan Problem List (1) Trochanteric bursitis of both hips: Status: Acute Plan: Patient is a 63-year-old female with bilateral knee arthritis right hip bursitis. We discussed nonoperative and operative options. She would like bilateral knee injections today as well as a right hip cortisone injection Recommend knee cortisone injection as patient would like to proceed with conservative treatment at this time. The risks and benefits of the procedure were reviewed with the patient and patient gave verbal consent to continue with the procedure. Procedure: performed by Dr. Rivero Using sterile technique the left knee was thoroughly prepped with alcohol, and approximately 1 cc of Depo-Medrol 80mg/mL and 4 cc of 0.2% ropivacaine was injected without resistance into the medial tibial femoral joint space. The patient tolerated the procedure. Recommend knee cortisone injection as patient would like to proceed with conservative treatment at this time. The risks and benefits of the procedure were reviewed with the patient and patient gave verbal consent to continue with the procedure. Procedure: performed by Dr. Rivero Using sterile technique the Right knee was thoroughly prepped with alcohol, and approximately 1 cc of Depo-Medrol 80mg/mL and 4 cc of 0.2% ropivacaine was injected without resistance into the medial tibial femoral joint space. The patient tolerated the procedure. Recommend hip bursa cortisone injection as patient would like to proceed with conservative treatment at this time. The risks and benefits of the procedure were reviewed with the patient and patient gave verbal consent to continue with the procedure. Procedure: performed by Dr. Rivero Using sterile technique the right hip bursa was thoroughly prepped with alcohol prep, and approximately 1 cc of Kenalog 40 mg/mL and 4 cc of 1% Lidocaine was injected without resistance. The patient tolerated the procedure well. (2) Bilateral primary osteoarthritis of knee: Status: Acute Advanced Care Planning Discussion Advance care planning discussed with:: patient Office Procedures GNS Level of Care Nursing/Assessment Patient Status: Established Patient Nursing Assessment/Reassesment: Medication Reconciliation, Update PMH in EMR and Vital Signs Coordination of Care: Complex Care and Chronic Disease 1-5, Education Complex Pt/Fam, Consent,records obtained, informed consent, Results/Orders obtained and Staff clarify orders Established Patient Charge Established Patient Point Assignment: 95 Surgical Proc/IM SQ injection Minor Surgical Procedure: Yes (BILATERAL KNEE INJ & HIP INJECTION ) Medication Given Medication Given Medication Given: Yes Documented Dose Given: 2 Route: Infiitration Medication Given Medication Given Medication Given: Yes Documented Dose Given: 1 Route: Infiitration Medication Given Medication Given Medication Given: Yes Documented Dose Given: 4 Route: Infiitration Office Meds methylprednisolone acetate 80 mg/mL suspension for injection Performing Provider: Rafat Rivero MD Performing Location: [facility] Administered by: Rafat Rivero MD on 04/07/25 10:15 Dose Route Admin Location Dispensed Lot Number Expiration Date Pack age [facility] Science Technician 160 mg intra-articular KNEES 2 mL [id number] 12/03[birth year]26 [id number] [employer] methylprednisolone acetate 80 mg/mL suspension for injection Performing Provider: Rafat Rivero MD Performing Location: [facility] Administered by: Rafat Rivero MD on 04/07/25 10:15 Dose Route Admin Location Dispensed Lot Number Expiration Date Pack age [facility] NDC Science Technician 80 mg intra-articular 1 mL ropivacaine (PF) 2 mg/mL (0.2 %) injection solution Performing Provider: Rafat Rivero MD Performing Location: [facility] Administered by: Rafat Rivero MD on 04/07/25 10:15 Dose Route Admin Location Dispensed Lot Number Expiration Date Pack age [place] [employer] Science Technician 20 mL Infiltration KNEE 20 mL [id number] 05/05/27 ropivacaine (PF) 2 mg/mL (0.2 %) injection solution Performing Provider: Rafat Rivero MD Performing Location: [facility] Administered by: Rafat Rivero MD on 04/07/25 10:15 Dose Route Admin Location Dispensed Lot Number Expiration Date Pack age [place] [employer] Science Technician 40 mL Infiltration HIP 40 mL [id number] 05/05/27 [id number] [facility] Intake Visit Data Collection New Patient or Established: Established Patient (seen at [facility] within 3 years) Reason for Visit:: BILATERAL KNEE INJECTION & HIP INJECTION Seen by Clinical Staff ONLY (RN/MA): No Verbal consent obtained for Telemed visit?: No 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 PCP or OBGYN visit in last 3 months: Yes Hx Now: No Do You Feel Safe at Home: Yes Authorities Contacted: N/A Questionairres Past Medical History Past Medical History Have you ever been diagnosed with any of the following: Neurological Problems Seizures: No Cardiology Problems Heart Murmur: Yes Congestive Heart Failure: No Hypertension: Yes Respiratory Problems Chronic Obstructive Pulmonary Disease (COPD): No Pneumonia: Yes Sleep Apnea: Yes (WAITING FOR CPAP DELIVERY) Stomache/Intestinal Problems Gall Bladder Disease: Yes Gastroesophageal Reflux Disease: Yes Genital/Urinary Problems Renal Disease: No Musculoskeletal Problems Arthritis: Yes Osteoporosis: Yes Degenerative Disk Disease: Yes Fibromyalgia: Yes Endocrine Problems Diabetes Mellitus Type 1: No Diabetes Mellitus Type 2: No Hypothyroidism: Yes Psychologic Problems Depression: Yes Anxiety: Yes Other Problems Hospitalization: Yes Falls: Yes Blood Transfusions: Yes Blood Transfusion Reaction: No Anesthesia Reactions: No Chicken Pox: Yes Measles: Yes Mumps: Yes Cancer: No Surgical History Hysterectomy: Yes Subjective Visit Visit for: follow up visit, hip (RIGHT HIP) and knee (BILATERAL KNEE ) Immunization / Flu Flu Vaccine in the Last 12 Months: Yes Flu Vaccine Exclusion Criteria: Already Received History of Present Illness Chief complaint: REQ HIP INJECTIONS Patient is a 63-year-old female with bilateral knee pain and bilateral knee arthritis. She has 3 months of relief with the last injections. The knee injections continue to work for 3 months or longer. She would like bilateral knee injections today as Well as a right hip injection. The injections are working for 3 months. Personal History Red flag PMH: none Pain Pain level (0-10): 6 Pain duration: 1 MONTH Pain location: groin and anterior Pain quality: sharp, dull, burning and other (specify) (SWELLING) Pain timing: night and increases with activity Associated signs & symptoms: weakness and stiffness Ambulatory data Ambulatory device: none Walking distance (minutes): 5 Treatments Number of previous injections: 3 Improvement with previous injections: Yes Number of Physical Therapy sessions: 0 Improvement with PT: No Improvement with NSAIDS: n/a Review of Systems Review of Systems: All systems negative unless otherwise noted in HPI.
[2025-04-07 10:12] VITALS: BP 130/70; PULSE 76; RESP 18; TEMP 35.9; O2SAT 95; BMI 28.4
== END 2025-04-07 10:24 | disposition home or self-care (01) ==
LOC: HODSRG 09:46
PROVIDERS: PCP Internal Medicine; Referring Provider Internal Medicine; Supervising Provider Orthopaedic Surgery Adult Reconstructive Orthopaedic Surgery; Visit Provider Orthopaedic Surgery Adult Reconstructive Orthopaedic Surgery
DX: M17.0 Bilateral primary osteoarthritis of knee (principal); M70.62 Trochanteric bursitis, left hip; M70.61 Trochanteric bursitis, right hip; I10 Essential (primary) hypertension; M25.562 Pain in left knee; M25.561 Pain in right knee
CPT/HCPCS: 20610; 99213; J1010; J2795; G0463